=== PATIENT | male | born 1965 | race Caucasian/White ===

== ENCOUNTER 2019-07-04 07:02 | Emergency (ER) | payer SELFPAY ==
[~2019-07-04] VITALS: Ht 180.3 cm; Wt 118.0 kg
[2019-07-04] MEDS: MORPHINE SULFATE 4 MG/ML CPJ (NOT FOR IM USE) IV STA (08:05)
[2019-07-04] MEDS: ONDANSETRON HCL 4MG/2ML INJ IV STA (08:08)
[2019-07-04] MEDS: SODIUM CHLORIDE 0.9% 1,000 ML IV ONE (08:08)
[2019-07-04] MEDS: MORPHINE SULFATE 10 MG/ML CPJ IV ONE (10:23)
[2019-07-04] MEDS: ONDANSETRON HCL 4MG/2ML INJ IV ONE (10:23)
[2019-07-04 11:02] LABS: HEMOGLOBIN. 15.5 g/dL (14.0-18.0); MEAN CORPUSCULAR VOLUME 94.8 fL (80.0-94.0); MEAN PLATELET VOLUME 8.6 fl (7.4-10.4); PLATELET 212 x1000/uL (130-400); RED BLOOD CELL COUNT 4.85 mill/uL (4.7-6.1); RED CELL DISTRIBUTION WIDTH 13.3 % (11.6-14.6)
[2019-07-04 11:11] LABS: PARTIAL THROMBOPLASTIN TIME 27.8 sec (23.4-31.0); PROTHROMBIN TIME 10.4 sec (9.6-11.0)
[2019-07-04 11:15] LABS: CHLORIDE 109 mEq/L (98-107)
[2019-07-04 11:28] LABS: CLARITY URINE CLEAR (CLEAR); COLOR URINE YELLOW (YELLOW); KETONES URINE NEGATIVE (NEGATIVE); LEUKOCYTE ESTERASE URINE NEGATIVE (NEGATIVE); NITRITE URINE NEGATIVE (NEGATIVE); OCCULT BLOOD URINE NEGATIVE (NEGATIVE); PROTEIN URINE NEGATIVE (NEGATIVE); SPECIFIC GRAVITY URINE 1.018 (1.005-1.030); UROBILINOGEN URINE 0.2 E.U./dL (0.2-1.0)
[2019-07-04 11:29] LABS: PLATELET ESTIMATE NORMAL
[2019-07-04 12:25] VITALS: BP 142/84
== END 2019-07-04 12:45 | disposition short-term general hospital (02) ==
LOC: ER 07:02
DX: S32.89XA Fracture of other parts of pelvis, initial encounter for closed fracture (principal); W51.XXXA Accidental striking against or bumped into by another person, initial encounter; Y93.89 Activity, other specified; Y92.89 Other specified places as the place of occurrence of the external cause; Y99.8 Other external cause status
CPT/HCPCS: 36415; 71045; 72125; 72192; 73030; 80053; 81003; 85025; 85610; 85730; 86850; 86900; 86901; 96374; 96375; 96376; 99291; J2270; J2405; J7030; Z7610